=== PATIENT | male | born 1955 | race Caucasian/White ===

== ENCOUNTER → 2024-03-20 06:24 | Day surgery (SDC) | payer BC, SELFPAY | LOC: GI 06:24 | PROVIDERS: ATTENDING PHYSICIAN Internal Medicine Gastroenterology | DX: Z12.11 Encounter for screening for malignant neoplasm of colon (principal); K57.30 Diverticulosis of large intestine without perforation or abscess without bleeding; K64.8 Other hemorrhoids | CPT/HCPCS: G0121 ==

== ENCOUNTER → 2024-07-06 14:28 | Outpatient (REF) | payer BC, SELFPAY | LOC: RCS 14:28 | PROVIDERS: ATTENDING PHYSICIAN Internal Medicine Cardiovascular Disease; FAMILY PHYSICIAN Internal Medicine | DX: R06.09 Other forms of dyspnea (principal) | CPT/HCPCS: 93306 ==

== ENCOUNTER 2024-12-25 11:32 | Day surgery (SDC) | payer BC, SELFPAY ==
[2024-12-25 11:47] VITALS: BMI 28.6
[2024-12-25 11:51] VITALS: BP 169/85
[2024-12-25 11:59] VITALS: BP 169/85
[2024-12-25 16:22] VITALS: BP 107/68
--- NOTE | 2024-12-25 16:23 | ITS.CL.IMPLP ---
Apparatus [employer]eman - Implant Loop
Implant Loop
Procedure Report:
Primary Physician: Dr Dayna Calle
Primary Mini Lab Operator: Dr Greg Welch
Procedure Date: 12/25/2024
Procedure:
1. Removal of Implanted Loop Recorder
History/Indication:
1. See office H&P for complete history.
2. Patient is a pleasant 69-year-old male with a past medical history significant for hypertension, PVD, spinal stenosis, chronic back pain with paroxysmal atrial fibrillation who had ILR implanted for longitudinal surveillance of arrhythmia.
Patient has not had recurrence of arrhythmia and device is now PERCY/end-of-life. Patient presenting for elective ILR explant.
Methods:
After informed consent was obtained, the patient was brought to the EP laboratory. Continuous ECG, blood pressure, and pulse oximetry were initiated. Sedation was not required.
The left chest was prepared and draped in a sterile fashion. A time-out was called. Local anesthesia was injected in the subcutaneous tissue overlying the ILR. An incision was made into the chronic scar. The subcutaneous tissue was dissected the
level of the chronic capsule. The capsule was opened and the ILR was removed.
The pocket was flushed with antibiotic solution and hemostasis was assured. Manual pressure was applied until hemostasis resulted. Topical skin adhesive was applied to the skin.
Explanted device: Model: [employer] Grid, Serial# [id number]
Conclusions:
1. Successful removal of ILR
Recommendations:
1. Discharge to home
2. Follow-up will be arranged in the office 7-10 days post-discharge
Michael Luu DO, FACC
Clinical Cardiac [employer]
cc: Dr Dayna Calle; Dr Greg Welch
[2024-12-25 16:36] VITALS: BP 111/69
[2024-12-25 16:52] VITALS: BP 125/81
== END 2024-12-25 17:15 | disposition home or self-care (01) ==
LOC: CATH 11:32
PROVIDERS: ATTENDING PHYSICIAN Internal Medicine Cardiovascular Disease; FAMILY PHYSICIAN Internal Medicine; OTHER PHYSICIAN Internal Medicine Cardiovascular Disease
DX: Z09 Encounter for follow-up examination after completed treatment for conditions other than malignant neoplasm (principal); I48.0 Paroxysmal atrial fibrillation; I10 Essential (primary) hypertension; I73.9 Peripheral vascular disease, unspecified; G89.29 Other chronic pain
CPT/HCPCS: 33286